=== PATIENT | male | born 1975 | race Caucasian/White ===

== ENCOUNTER → 2019-12-08 | Outpatient (CLI) | payer OTHER ==
[~2019-12-08] MED LIST: METOPROLOL SUCC50 M1 PO; VANCOMYCIN HCL125 MG PO
== END | disposition home or self-care (01) ==
LOC: LAB 14:16
PROVIDERS: Nurse Practitioner
DX: T45.1X5A Adverse effect of antineoplastic and immunosuppressive drugs, initial encounter (principal); Z51.11 Encounter for antineoplastic chemotherapy; A04.72 Enterocolitis due to Clostridium difficile, not specified as recurrent; C18.7 Malignant neoplasm of sigmoid colon; D53.9 Nutritional anemia, unspecified; X58.XXXA Exposure to other specified factors, initial encounter; Y93.89 Activity, other specified; Y92.89 Other specified places as the place of occurrence of the external cause; Y99.8 Other external cause status

== ENCOUNTER 2019-12-14 04:03 | Inpatient (IN) | payer OTHER ==
[2019-12-14] VITALS (9 sets, daily range): BP systolic 114–168; BP diastolic 80–96
[~2019-12-14] VITALS: Ht 167.6 cm; Wt 102.6 kg
[2019-12-14 04:48] LABS: BASO % 0.4 % (0.0-1.0); EOS # 0.2 10*3/uL (0.0-0.4); HEMATOCRIT 47.2 % (42.0-52.0); LYMPH # 1.1 10*3/uL (1.3-4.4); MEAN CELL VOLUME 87.2 fl (80.0-94.0); MEAN CORPUSCULAR HGB 29.4 pg (27.0-31.0); MEAN CORPUSCULAR HGB CONC 33.7 g/dl (33.0-37.0); MEAN PLATELET VOLUME 9.5 fl (9.6-12.3); MONO # 0.6 10*3/uL (0.1-1.0); MONO % 10.5 % (3.0-9.0); NEUT # 3.6 10*3/uL (2.3-7.9); NEUT % 65.1 % (47.0-73.0); PLATELET COUNT AUTOMATED 213 10*3/uL (130-400); RED BLOOD COUNT 5.41 10*6/uL (4.50-5.90); RED CELL DISTRI WIDTH 13.2 % (0-14.5); WHITE BLOOD COUNT 5.5 10*3/uL (4.8-10.8)
--- NOTE | 2019-12-14 04:50 | NUR ---
ACCESSED PT'S MEDIPORT IN RT CHEST USING 20G 1 INCH EMANUEL NEEDLE. STERILE TECHNIQUE MAINTAINED THROUGHOUT PROCEDURE. POSITIVE BLOOD RETURN, FLUSHES WITHOUT DIFFICULTY. STERILY DRESSED WITH TEGADERM, CLEAN CAP APPLIED TO END OF HUB.
[2019-12-14 04:57] LABS: LIPASE 112 U/L (73-393)
[2019-12-14 05:28] LABS: ALBUMIN 3.4 gm/dl (3.1-4.5); ALKALINE PHOSPHATASE 90 U/L (45-117); BUN 12 mg/dl (7-24); CHLORIDE 107 mmol/L (98-107); CREATININE 1.05 mg/dL (0.70-1.30); SGOT/AST 22 IU/L (3-35); SGPT/ALT 35 U/L (12-78); SODIUM 138 mmol/L (136-145); TOTAL PROTEIN 7.2 gm/dL (6.4-8.2)
--- NOTE | 2019-12-14 05:38 | NUR ---
PT MEDICATED FOR PAIN PER OCT. PLACED ON CONTINUOUS CARDIAC, PULSE OX AND BP MONITORING. AWAITING PT TO FINISH PO CONTRAST FOR CT. PT AWARE OF POC AND AGREEABLE, DENIES FURTHER NEEDS AT THIS TIME. CALL LIGHT REMAINS WITHIN REACH, BED LOW AND LOCKED. WILL CONTINUE TO MONITOR.
--- NOTE | 2019-12-14 07:29 | NUR ---
RESTING IN NO DISTRESS AT THIS TIME. STATES HIS PAIN IS BETTER. CALL LIGHT IN REACH.
--- NOTE | 2019-12-14 08:05 | NUR ---
CONTINUES TO REST COMFORTABLY. CALL LIGHT IN REACH.
--- NOTE | 2019-12-14 10:15 | NUR ---
A 44, admitted to , under the services of MONO May DO with a diagnosis of CDIFF, SMALL BOWEL OBSTRUCTION. Chief complaint is PAIN, NAUSEA. Patient arrived via stretcher from ER. Monitor applied. Initial assessment completed. Vital signs taken and recorded. MONO MAY DO notified of admission to the unit. Orders received. See assessment for past medical history, medications and allergies. Patient and/or family oriented to unit. [address] visitation policy reviewed. Clothing/patient valuable form completed. EMRE MILLARD
[2019-12-14] MEDS ORDERED: METOPROLOL SUCC50 M1 PO (10:28)
[2019-12-14] MEDS ORDERED: VANCOMYCIN HCL125 MG PO (10:30)
--- NOTE | 2019-12-14 10:46 | NUR ---
DR GUERRERO NOTIFIED OF UPDATED MED REC
--- NOTE | 2019-12-14 11:09 | NUR ---
PT REQUESTED AND WAS MEDICATED WITH NORCO FOR C/O ABDOMINAL PAIN. CALL LIGHT AND ISOLATION PRECAUTIONS MAINTAINED.
--- NOTE | 2019-12-14 11:45 | NUR ---
IVF INFUSING PER ORDERS.
--- NOTE | 2019-12-14 12:30 | NUR ---
NORCO NOT EFFECTIVE PER PT. DR TO BE NOTIFIED. WILL MONITOR
--- NOTE | 2019-12-14 13:46 | NUR ---
PT MEDICATED WITH DILAUDID FOR C/O ABDOMINAL PAIN. WILL MONITOR
--- NOTE | 2019-12-14 14:46 | NUR ---
MEDICATION EFFECTIVE PER PT.
--- NOTE | 2019-12-14 17:51 | NUR ---
PT REQUESTED AND WAS MEDICATED WITH DILAUDID AND ZOFRAN FOR C/O ABDOMINAL PAIN AND NAUSEA. CALL LIGHT IN REACH. WILL MONITOR
--- NOTE | 2019-12-14 21:43 | NUR ---
PATIENT MEDICATED WITH DILAUDID AND ZOFRAN PER PRN ORDER AND PATIENT REQUEST FOR C/O NAUSEA AND ABDOMINAL PAIN. SEE EMAR. REINFORCED USE OF CALL LIGHT.
[2019-12-15] VITALS: BP 139/78
--- NOTE | 2019-12-15 | NUR ---
PATIENT RESTING QUIETLY. NO FURTHER C/O VOICED.
--- NOTE | 2019-12-15 01:50 | NUR ---
PATIENT REQUESTED AND WAS MEDICATED WITH DILAUDID AND ZOFRAN PER PRN ORDER FOR C/O SL NAUSEA, ABDOMINAL PAIN. RATED PAIN A 4/10 WITH 10 BEING THE WORST. ALSO MEDICATED WITH TYLENOL FOR TEMP ELEVATION OF 99.5. SEE EMAR. REINFORCED USE OF CALL LIGHT
--- NOTE | 2019-12-15 04:00 | NUR ---
PATIENT RESTING QUIETLY. NO FURTHER C/O VOICED.
--- NOTE | 2019-12-15 06:00 | NUR ---
PATIENT MEDICATED SLOWLY WITH DILAUDID 1MG IV AND ZOFRAN 4 MG IV PER PRN ORDER FOR C/O ABDOMINAL PAIN / NAUSEA. RATED PAIN A 3/10 WITH 10 BEING THE WORST.SEE EMAR. REINFORCED USE OF CALL LIGHT
[2019-12-15 06:05] LABS: ALKALINE PHOSPHATASE 75 U/L (45-117); BUN 13 mg/dl (7-24); CHLORIDE 108 mmol/L (98-107); CHOLESTEROL 161 mg/dL (<200); CREATININE 1.12 mg/dL (0.70-1.30); HDL CHOLESTEROL 35 mg/dl (40-60); LDL CHOLESTEROL 92 mg/dL (9-159); PHOSPHOROUS 3.1 mg/dL (2.5-4.9); SGOT/AST 12 IU/L (3-35); SGPT/ALT 28 U/L (12-78); SODIUM 140 mmol/L (136-145); TOTAL PROTEIN 6.3 gm/dL (6.4-8.2); TRIGLYCERIDES 171 mg/dl (<150); VLDL CHOLESTEROL 34 mg/dL (6-40)
[2019-12-15 06:06] LABS: BASO % 0.6 % (0.0-1.0); EOS # 0.2 10*3/uL (0.0-0.4); HEMATOCRIT 43.1 % (42.0-52.0); LYMPH # 1.2 10*3/uL (1.3-4.4); LYMPH % 24.6 % (27.0-41.0); MEAN CELL VOLUME 89.2 fl (80.0-94.0); MEAN CORPUSCULAR HGB 28.8 pg (27.0-31.0); MEAN CORPUSCULAR HGB CONC 32.3 g/dl (33.0-37.0); MEAN PLATELET VOLUME 9.9 fl (9.6-12.3); MONO # 0.8 10*3/uL (0.1-1.0); MONO % 16.1 % (3.0-9.0); NEUT # 2.7 10*3/uL (2.3-7.9); NEUT % 54.5 % (47.0-73.0); PLATELET COUNT AUTOMATED 215 10*3/uL (130-400); RED BLOOD COUNT 4.83 10*6/uL (4.50-5.90); RED CELL DISTRI WIDTH 13.2 % (0-14.5)
[2019-12-15 08:00] VITALS: BP 124/64
--- NOTE | 2019-12-15 10:29 | NUR ---
PT REQUESTED AND WAS MEDICATED WITH DILAUDID IV FOR C/O ABDOMINLA PAIN AND ZOFRAN IV FOR C/O NAUSEA. CALL LIGHT IN REACH. ISOLATION PRECAUTIONS MAINTAINED. WILL MONITOR
--- NOTE | 2019-12-15 10:34 | NUR ---
Laser/Electro Optics Technician in to talk to patient. Patient states lives at HOME with . There are NO steps in the home. Physician: RADHA [facility]acy: [facility] Home health services: [facility] ONCE A WEEK Patient's level of ADLs: INDEPENDENT Patient has working utilities: YES DME: NONE Follow-up physician's appointment after d/c: WILL BE MADE BY HOSPITALIST NURSE DIRECTOR ON DISCHARGE Does patient want to access PORTAL?: NO Discharge plan . PT LIVES AT HOME WITH HIS AND IS INDEPENDENT IN HIS CARE. STATES HE IS CURRENTLY STILL GETTING CHEMO AND HAS [facility] WEEKLY. PT STATES HE IS NOT SURE ABOUT DISCHARGE PLAN AT THIS TIME. STATES THEY WERE TALKING ABOUT HIM GOING TO [facility]. WILL CONTINUE TO FOLLOW. STATES IF HE DOES GO HOME WILL TRANSPORT HIM. ELA HAMILTON
--- NOTE | 2019-12-15 11:30 | NUR ---
MEDICATIONS EFFECTIVE PER PT. CALL LIGHT IN REACH. WILL MONITOR
[2019-12-15 12:00] VITALS: BP 135/78
[2019-12-15 16:00] VITALS: BP 157/95
--- NOTE | 2019-12-15 16:00 | NUR ---
NORCO GIVEN FOR ABD PAIN RATED 8/10. CALL LIGHT IN REACH. ISOLATION MAINTAINED. WILL MONITOR FOR EFFECTIVENESS.
--- NOTE | 2019-12-15 16:43 | NUR ---
DILAUDID GIVEN FOR C/O ABD PAIN RATED 10/10. CALL LIGHT IN REACH. WILL MONITOR. NORCO WAS INEFFECTIVE.
--- NOTE | 2019-12-15 16:47 | NUR ---
C.O NAUSEA, ASKING FOR BUCKET. ZOFRAN INEFFECTIVE. INFORMED. SAID HE WOULD ORDER PHENERGAN.
--- NOTE | 2019-12-15 17:18 | NUR ---
PHENERGAN GIVEN FOR C/O NAUSEA DESPITE ZOFRAN. WILL MONITOR.
[2019-12-15 20:00] VITALS: BP 163/91
--- NOTE | 2019-12-15 20:15 | NUR ---
CALLED AND WAS UPDATED ON PATIENT. PAIN ASSESSMENT COMPLETED. DENIES NEED FOR PAIN MEDS AT PRESENT.
--- NOTE | 2019-12-15 22:00 | NUR ---
PATIENT MEDICATED WITH ZOFRAN AND DILAUDID PER PRN ORDER FOR C/O NAUSEA AND ABDOMINAL PAIN. RATED PAIN A 5-6/10 WITH 10 BEING THE WORST. SEE EMAR. REINFORCED USE OF CALL LIGHT.
[2019-12-16] VITALS: BP 157/93
--- NOTE | 2019-12-16 | NUR ---
PATIENT RESTING QUIETLY. NO S/S OF DISTRESS NOTED.
--- NOTE | 2019-12-16 02:43 | NUR ---
24 HR chart check completed.
[2019-12-16 05:46] LABS: BUN 12 mg/dl (7-24); CHLORIDE 108 mmol/L (98-107); POTASSIUM 4.4 mmol/L (3.5-5.1); SODIUM 137 mmol/L (136-145)
[2019-12-16 06:15] LABS: BASO % 0.7 % (0.0-1.0); EOS # 0.3 10*3/uL (0.0-0.4); EOS % 5.1 % (1.0-4.0); HEMATOCRIT 43.9 % (42.0-52.0); LYMPH # 1.2 10*3/uL (1.3-4.4); LYMPH % 21.7 % (27.0-41.0); MEAN CELL VOLUME 91.3 fl (80.0-94.0); MEAN CORPUSCULAR HGB 28.9 pg (27.0-31.0); MEAN CORPUSCULAR HGB CONC 31.7 g/dl (33.0-37.0); MEAN PLATELET VOLUME 10.2 fl (9.6-12.3); MONO # 1.1 10*3/uL (0.1-1.0); MONO % 19.4 % (3.0-9.0); NEUT % 52.7 % (47.0-73.0); PLATELET COUNT AUTOMATED 219 10*3/uL (130-400); RED BLOOD COUNT 4.81 10*6/uL (4.50-5.90); RED CELL DISTRI WIDTH 13.2 % (0-14.5); WHITE BLOOD COUNT 5.7 10*3/uL (4.8-10.8)
[2019-12-16 08:00] VITALS: BP 140/85
[2019-12-16 12:00] VITALS: BP 139/76
--- NOTE | 2019-12-16 14:44 | NUR ---
Discharge instructions reviewed with patient/family. Patient receptive and verbalizes understanding. Follow-up care arranged. Written instructions given to patient/family. MEDIPORT DEACCESSED. PATIENT AMBULATORY OFF FLOOR. KG GUZMAN
== END 2019-12-16 14:44 | disposition home or self-care (01) | DRG 389 ==
LOC: ED 04:03 → 4E 09:28 → EDHOLD 09:28 → 4E 09:40
PROVIDERS: Emergency Medicine; Family Medicine; Internal Medicine; ADMIT Family Medicine
DX: K56.600 Partial intestinal obstruction, unspecified as to cause (principal); A04.72 Enterocolitis due to Clostridium difficile, not specified as recurrent; R65.10 Systemic inflammatory response syndrome (SIRS) of non-infectious origin without acute organ dysfunction; C80.0 Disseminated malignant neoplasm, unspecified; E44.1 Mild protein-calorie malnutrition; I10 Essential (primary) hypertension; E78.5 Hyperlipidemia, unspecified; R73.9 Hyperglycemia, unspecified; E87.8 Other disorders of electrolyte and fluid balance, not elsewhere classified; E83.41 Hypermagnesemia; Z93.3 Colostomy status; Z83.49 Family history of other endocrine, nutritional and metabolic diseases; Z68.36 Body mass index [BMI] 36.0-36.9, adult

== ENCOUNTER 2020-01-01 18:29 | Emergency (ER) | payer OTHER ==
[~2020-01-01] VITALS: Ht 167.6 cm; Wt 90.7 kg
[~2020-01-01 18:29] MED LIST changes: -LISINOPRIL2.5 MG PO
[2020-01-01 19:23] LABS: BASO % 0.3 % (0.0-1.0); EOS # 0.2 10*3/uL (0.0-0.4); EOS % 3.1 % (1.0-4.0); LYMPH # 1.4 10*3/uL (1.3-4.4); LYMPH % 17.7 % (27.0-41.0); MEAN CELL VOLUME 86.5 fl (80.0-94.0); MEAN CORPUSCULAR HGB 28.9 pg (27.0-31.0); MEAN CORPUSCULAR HGB CONC 33.5 g/dl (33.0-37.0); MONO # 0.5 10*3/uL (0.1-1.0); NEUT # 5.7 10*3/uL (2.3-7.9); NEUT % 72.8 % (47.0-73.0); PLATELET COUNT AUTOMATED 211 10*3/uL (130-400); RED BLOOD COUNT 5.32 10*6/uL (4.50-5.90); RED CELL DISTRI WIDTH 13.1 % (0-14.5); WHITE BLOOD COUNT 7.8 10*3/uL (4.8-10.8)
[2020-01-01 19:40] LABS: ALBUMIN 3.3 gm/dl (3.1-4.5); ALKALINE PHOSPHATASE 84 U/L (45-117); BUN 10 mg/dl (7-24); CHLORIDE 105 mmol/L (98-107); LIPASE 180 U/L (73-393); POTASSIUM 3.4 mmol/L (3.5-5.1); SGOT/AST 19 IU/L (3-35); SGPT/ALT 61 U/L (12-78); SODIUM 137 mmol/L (136-145); TOTAL PROTEIN 7.1 gm/dL (6.4-8.2)
== END 2020-01-01 21:15 ==
LOC: ED 18:29
PROVIDERS: Physician Assistant
DX: R10.9 Unspecified abdominal pain (principal); I10 Essential (primary) hypertension; Z79.899 Other long term (current) drug therapy

== ENCOUNTER → 2020-01-01 | Outpatient (CLI) | payer OTHER ==
[~2020-01-01] MED LIST changes: +LISINOPRIL2.5 MG PO
== END | disposition home or self-care (01) ==
LOC: LAB 16:02
DX: Z51.11 Encounter for antineoplastic chemotherapy (principal); A04.72 Enterocolitis due to Clostridium difficile, not specified as recurrent; R11.2 Nausea with vomiting, unspecified; D53.9 Nutritional anemia, unspecified; C18.7 Malignant neoplasm of sigmoid colon

== ENCOUNTER 2020-01-04 10:42 | Inpatient (IN) | payer OTHER ==
[~2020-01-04] VITALS: Ht 167.6 cm; Wt 98.1 kg
[2020-01-04 10:46] VITALS: BP 152/101
[2020-01-04 11:15] LABS: BASO # 0.1 10*3/uL (0.0-0.1); BASO % 0.6 % (0.0-1.0); EOS # 0.3 10*3/uL (0.0-0.4); EOS % 3.1 % (1.0-4.0); HEMATOCRIT 48.3 % (42.0-52.0); LYMPH # 1.2 10*3/uL (1.3-4.4); LYMPH % 13.8 % (27.0-41.0); MEAN CELL VOLUME 86.9 fl (80.0-94.0); MEAN CORPUSCULAR HGB 28.8 pg (27.0-31.0); MEAN CORPUSCULAR HGB CONC 33.1 g/dl (33.0-37.0); MEAN PLATELET VOLUME 9.6 fl (9.6-12.3); MONO # 0.7 10*3/uL (0.1-1.0); MONO % 8.1 % (3.0-9.0); NEUT # 6.7 10*3/uL (2.3-7.9); NEUT % 74.2 % (47.0-73.0); PLATELET COUNT AUTOMATED 212 10*3/uL (130-400); RED BLOOD COUNT 5.56 10*6/uL (4.50-5.90); RED CELL DISTRI WIDTH 13.2 % (0-14.5)
[2020-01-04 11:29] LABS: ACT PARTIAL THROMBO TIME 26.2 SECONDS (20.0-32.1)
[2020-01-04 11:32] LABS: ALBUMIN 3.5 gm/dl (3.1-4.5); ALKALINE PHOSPHATASE 81 U/L (45-117); BUN 12 mg/dl (7-24); CHLORIDE 109 mmol/L (98-107); LIPASE 137 U/L (73-393); POTASSIUM 4.2 mmol/L (3.5-5.1); SGOT/AST 13 IU/L (3-35); SGPT/ALT 45 U/L (12-78); SODIUM 138 mmol/L (136-145); TOTAL PROTEIN 7.4 gm/dL (6.4-8.2)
[2020-01-04 11:46] LABS: BILIRUBIN NEGATIVE (NEGATIVE); BLOOD NEGATIVE (NEGATIVE); CLARITY CLEAR (CLEAR); COLOR YELLOW (YELLOW); GLUCOSE NEGATIVE (NEGATIVE); KETONE NEGATIVE (NEGATIVE); LEUKO ESTERASE NEGATIVE (NEGATIVE); MUCOUS TRACE; NITRITE NEGATIVE (NEGATIVE); RBC 0-2 rbc/hpf (0-2); UROBILINOGEN 0.2 E.U./dl (0.2-1.0); WBC 0-2 wbc/hpf (0-5)
[2020-01-04 13:30] VITALS: BP 137/89
--- NOTE | 2020-01-04 13:30 | NUR ---
A 44, admitted to 4E, under the services of MARCELLUS Alvarenga DO with a diagnosis of PARTIAL SMALL BOWEL OBSTRUCTION. Chief complaint is ABDOMINAL PAIN. Patient arrived via wheel chair from ER. Monitor applied. Initial assessment completed. Vital signs taken and recorded. MARCELLUS ALVARENGA DO notified of admission to the unit. Orders received. See assessment for past medical history, medications and allergies. Patient and/or family oriented to unit. [facility] visitation policy reviewed. Clothing/patient valuable form completed. IZZY MAGAÑA
[2020-01-04] MEDS ORDERED: LISINOPRIL2.5 MG PO (13:47)
--- NOTE | 2020-01-04 13:48 | NUR ---
PT GIVEN MORPHINE DUE TO ABDOMINAL PAIN, RATES PAIN A "10" ON 1-10 SCALE .WILL MONITOR FOR EFFECTIVENESS. PT RESTING IN BED. SAFETY MEASURES IN PLACE. CALL LIGHT IN REACH.
--- NOTE | 2020-01-04 14:48 | NUR ---
PT STATES THAT MORPHINE IS EFFECTIVE AT THIS TIME.
--- NOTE | 2020-01-04 14:58 | NUR ---
DR KEARNS NOTIFIED OF CONSULT ON PT.
[2020-01-04 16:00] VITALS: BP 134/85
--- NOTE | 2020-01-04 16:58 | NUR ---
PT C/O PAIN TO ABDOMEN. NORCO GIVEN PER PRN ORDERS ON EMAR. WILL MONITOR FOR EFFECTIVENESS. CALL LIGHT IN REACH.
--- NOTE | 2020-01-04 18:34 | NUR ---
PT GIVEN MORPHINE AT THIS TIME FOR C/O ABDOMINAL PAIN. WILL MONITOR FOR EFFECTIVENESS. CALL LIGHT IN REACH.
--- NOTE | 2020-01-04 19:00 | NUR ---
ASSUMED CARE FOR THIS PT AT THIS TIME. PT C/O DIFFUSE STABBING PAIN TO MID ABD, PT PREVIOUSLY MEDICATED W/MORHPINE IVP. PT DENIES NAUSEA. CALL LIGHT IN REACH. WILL MONITOR PAIN.
[2020-01-04 20:00] VITALS: BP 151/82
--- NOTE | 2020-01-04 22:47 | NUR ---
PT MEDICATED W/MORPHINE IVP FOR C/O ABD PAIN 12/30. WILL MONITOR FOR EFFECTIVENESS. CALL LIGHT IN REACH.
--- NOTE | 2020-01-04 23:42 | NUR ---
PT MEDICATED W/NORCO FOR C/O ABD PAIN 12/30 D/T MORPHINE NOT EFFECTIVE.
[2020-01-05] VITALS: BP 128/79
--- NOTE | 2020-01-05 | NUR ---
PT RESTING QUIETLY IN BED. NO FURTHER C/O PAIN VOICED.
--- NOTE | 2020-01-05 03:18 | NUR ---
PT MEDICATED W/MORPHINE IVP FOR C/O ABD PAIN 01/30. WILL MONITOR.
--- NOTE | 2020-01-05 04:18 | NUR ---
PT RESTING QUIETLY IN BED. NO S/S OF DISTRESS NOTED.
[2020-01-05 05:58] LABS: BASO % 0.5 % (0.0-1.0); EOS # 0.3 10*3/uL (0.0-0.4); EOS % 4.1 % (1.0-4.0); HEMATOCRIT 42.6 % (42.0-52.0); LYMPH # 1.2 10*3/uL (1.3-4.4); LYMPH % 18.8 % (27.0-41.0); MEAN CORPUSCULAR HGB 28.3 pg (27.0-31.0); MEAN CORPUSCULAR HGB CONC 32.2 g/dl (33.0-37.0); MEAN PLATELET VOLUME 10.1 fl (9.6-12.3); MONO # 0.6 10*3/uL (0.1-1.0); MONO % 9.7 % (3.0-9.0); NEUT # 4.3 10*3/uL (2.3-7.9); NEUT % 66.6 % (47.0-73.0); PLATELET COUNT AUTOMATED 179 10*3/uL (130-400); RED BLOOD COUNT 4.84 10*6/uL (4.50-5.90); RED CELL DISTRI WIDTH 13.2 % (0-14.5); WHITE BLOOD COUNT 6.4 10*3/uL (4.8-10.8)
[2020-01-05 06:08] LABS: BUN 13 mg/dl (7-24); CHLORIDE 106 mmol/L (98-107); CREATININE 0.81 mg/dL (0.70-1.30); POTASSIUM 3.8 mmol/L (3.5-5.1); SODIUM 138 mmol/L (136-145)
--- NOTE | 2020-01-05 06:19 | NUR ---
SCOTT DARLING [id number] Please refer to the physician's history and physical for past medical history, comorbid conditions, and allergies. Diagnosis: PARTIAL SMALL BOWEL OBSTRUCTION José Miguel Score: 23,LOW OR NO RISK WOUND DESCRIPTIONS: Wound Number: 1 Location of the wound: left upper quadrant Type of wound: surgical Thickness: Partial Size: 0.1cm x 1.7cm x <0.1cm Tunneling: none Undermining: none Sinus Tract: none Presence of Exudate: none Amount: None Color: Red Odor: None Periwound Skin Appearance: Normal Wound edges: approximated with glue Pain (associated with wound): none at time of assessment How does patient state this happened? pt stated he had surgery last week Wound Number: 2 Location of the wound: left lower quadrant Type of wound: surgical Thickness: Partial Size: 0.1cm x 0.9cm x <0.1cm Tunneling: none Undermining: none Sinus Tract: none Presence of Exudate: none Amount: None Color: Red Odor: None Periwound Skin Appearance: Normal Wound edges: approximated with glue Pain (associated with wound): none at time of assessment How does patient state this happened? pt stated he had surgery last week Wound Number: 3 Location of the wound: umbilicus Type of wound: surgical Thickness: Partial Size: 0.1cm x 0.9cm x <0.1cm Tunneling: none Undermining: none Sinus Tract: none Presence of Exudate: none Amount: None Color: Red Odor: None Periwound Skin Appearance: Normal Wound edges: approximated with glue Pain (associated with wound): none at time of assessment How does patient state this happened? pt stated he had surgery last week Wound Number: 4 Location of the wound: right lower quadrant Type of wound: surgical Thickness: Partial Size: 0.1cm x 1.1cm x <0.1cm Tunneling: none Undermining: none Sinus Tract: none Presence of Exudate: none Amount: None Color: Red Odor: None Periwound Skin Appearance: Normal Wound edges: approximated with glue Pain (associated with wound): none at time of assessment How does patient state this happened? pt stated he had surgery last week Surface the patient is resting on: Isoflex SKIN PREVENTION RECOMMENDATION: 1. Pressure redistribution support surface as appropriate 2. Elevate heels 3. Remove boots/TEDS every shift and reapply 4. Head of bed 30 degrees as tolerated 5. Assess nutrition and hydration 6. Manage moisture 7. Avoid the use of containment devices while in bed 8. Use absorptive products on surfaces limit layers of linens on bed 9. Turn and reposition every 1-2 hours in bed and every 1 hour in chair as tolerated 10. Weight shifts every 15 minutes while up in chair 11. Offloading with pillows or device to keep heels elevated off bed 12. Monitor skin at least every shift 13. Inspect under medical devices twice a day WOUND TREATMENT RECOMMENDATIONS: Keep areas clean and dry and leave open to air since incisions are glued.
--- NOTE | 2020-01-05 07:32 | NUR ---
Dr. Arana notified of wound care recommendations.
--- NOTE | 2020-01-05 07:37 | NUR ---
MORPHINE 2 MG GIVEN AT THIS TIME FOR C/O INCREASED ABDOMINAL PAIN. WILL MONITOR FOR EFFECTIVENESS. SAFETY MEASURES IN PLACE. CALL LIGHT IN REACH.
[2020-01-05 08:00] VITALS: BP 138/92
--- NOTE | 2020-01-05 08:37 | NUR ---
MORPHINE EFFECTIVE PER PT.
[2020-01-05 12:00] VITALS: BP 130/86
--- NOTE | 2020-01-05 12:39 | NUR ---
PT GIVEN ZOFRAN VIA IV AT THIS TIME FOR C/O NAUSEA. WILL MONITOR FOR EFFECTIVENESS. CALL LIGHT IN REACH.
--- NOTE | 2020-01-05 13:39 | NUR ---
ZOFRAN EFFECTIVE PER PT
--- NOTE | 2020-01-05 14:38 | NUR ---
Nutritional Support Services Note: Appetite is goof for meals. He is eating 100% of all meals. He receives a soft diet as ordered. Healing surgical incision from exp lap. No nutriton intervention needed at this time. Continue to encourage good intake of meals. Will follow. Charu Marie Rdn Ld
--- NOTE | 2020-01-05 14:42 | NUR ---
IV FLUID RATE CHANGED FROM 80 TO 100CC/HOUR PER VERBAL ORDER RECEIVED BY DR RAY.
[2020-01-05 16:00] VITALS: BP 121/74
--- NOTE | 2020-01-05 17:06 | NUR ---
MORPHINE 2 MG GIVEN TO PT AT THIS TIME FOR C/O ABDOMINAL PAIN. WILL MONITOR FOR EFFECTIVENESS. CALL LIGHT IN REACH.
--- NOTE | 2020-01-05 18:06 | NUR ---
MORPHINE EFFECTIVE PER PT.
--- NOTE | 2020-01-05 19:00 | NUR ---
ASSUMED CARE FOR THIS PT AT THIS TIME. PT RESTNG QUIETLY IN BED. CALL LIGHT IN REACH.
[2020-01-05 20:00] VITALS: BP 160/72
--- NOTE | 2020-01-05 21:54 | NUR ---
PT MEDICATED W/ZOFRAN FOR C/O NAUSEA. PT RESTING QUIETLY IN BED W/LIGHTS OFF AND DOOR CLOSED. CALL LIGHT IN REACH.
--- NOTE | 2020-01-05 22:30 | NUR ---
PT STATES THAT ZOFRAN WAS EFFECTIVE FOR RELIEF OF NAUSEA.
[2020-01-06] VITALS: BP 156/83
--- NOTE | 2020-01-06 00:32 | NUR ---
PT MEDICATED W/IVP MORPHINE FOR C/O ABD CRAMPING 11/30.
[2020-01-06 06:32] LABS: BASO % 0.3 % (0.0-1.0); EOS # 0.3 10*3/uL (0.0-0.4); HEMATOCRIT 40.5 % (42.0-52.0); LYMPH # 1.2 10*3/uL (1.3-4.4); LYMPH % 17.1 % (27.0-41.0); MEAN CELL VOLUME 87.1 fl (80.0-94.0); MEAN CORPUSCULAR HGB 28.8 pg (27.0-31.0); MEAN CORPUSCULAR HGB CONC 33.1 g/dl (33.0-37.0); MEAN PLATELET VOLUME 9.7 fl (9.6-12.3); MONO # 0.8 10*3/uL (0.1-1.0); MONO % 11.7 % (3.0-9.0); NEUT # 4.5 10*3/uL (2.3-7.9); NEUT % 65.6 % (47.0-73.0); PLATELET COUNT AUTOMATED 182 10*3/uL (130-400); RED BLOOD COUNT 4.65 10*6/uL (4.50-5.90); RED CELL DISTRI WIDTH 13.2 % (0-14.5); WHITE BLOOD COUNT 6.8 10*3/uL (4.8-10.8)
[2020-01-06 07:12] LABS: ALKALINE PHOSPHATASE 73 U/L (45-117); BUN 10 mg/dl (7-24); CHLORIDE 105 mmol/L (98-107); CREATININE 0.86 mg/dL (0.70-1.30); SGOT/AST 11 IU/L (3-35); SGPT/ALT 29 U/L (12-78); SODIUM 139 mmol/L (136-145)
[2020-01-06 07:13] LABS: TOTAL PROTEIN 6.1 gm/dL (6.4-8.2)
--- NOTE | 2020-01-06 07:30 | NUR ---
Hep Lock discontinued to right antecubital due to site becoming dislodged. Will place another site for pt to receive IV fluids. Site asymptomatic. Pressure applied. Sterile dressing applied. IZZY MAGAÑA
--- NOTE | 2020-01-06 07:45 | NUR ---
IV started left hand with #22 protective cath after 1 attempts. Site prepped with Chloroprep. Sterile dressing applied. Patient tolerated procedure well. IV infusing at 100 cc/hr. IZZY MAGAÑA
[2020-01-06 08:00] VITALS: BP 136/77
--- NOTE | 2020-01-06 08:00 | NUR ---
PT GIVEN MORPHINE 2 MG AT THIS TIME PER PT REQUEST FOR C/O ABDOMINAL PAIN. WILL MONITOR FOR EFFECTIVENESS. CALL LIGHT IN REACH.
--- NOTE | 2020-01-06 09:00 | NUR ---
MORPHINE EFFECTIVE PER PT.
[2020-01-06 12:00] VITALS: BP 126/58
--- NOTE | 2020-01-06 12:06 | NUR ---
PT GIVEN MORPHINE 2 MG VIA IV PUSH FOR C/O ABDOMINAL PAIN. PATIENT RATES PAIN A "6". WILL MONITOR FOR EFFECTIVENESS. CALL LIGHT IN REACH.
--- NOTE | 2020-01-06 12:45 | NUR ---
SPOKE WITH ADOLFO FROM [facility] AND GAVE INFORMATION ON PATIENT PER HER REQUEST. ADOLFO STATES THAT PT HAS BEEN ACCEPTED TO [place] BUT NO BED IS AVAILABLE AT THIS TIME.
--- NOTE | 2020-01-06 12:48 | NUR ---
Spoke to Tha at [facility] Med Call regarding prior authorization for transfer to a [facility] facility. She states patient does NOT need an auth to be transferred to a [facility] facility as patient has [facility] insurance. Nurse and nursing supervisor machining notified.
--- NOTE | 2020-01-06 13:06 | NUR ---
MORPHINE EFFECTIVE PER PT.
--- NOTE | 2020-01-06 14:29 | NUR ---
REPORT CALLED TO HERBERT BEVERLY AT [facility].
--- NOTE | 2020-01-06 14:30 | NUR ---
PT LEAVING FACILITY AT THIS TIME FOR TRANSFER TO [facility]. [facility] TRANSPORTING PATIENT.
== END 2020-01-06 14:30 | disposition short-term general hospital (02) | DRG 389 ==
LOC: ED 10:42 → 4E 13:02 → EDHOLD 13:02 → 4E 13:30
PROVIDERS: Family Medicine; ADMIT Emergency Medicine
DX: K56.600 Partial intestinal obstruction, unspecified as to cause (principal); C80.0 Disseminated malignant neoplasm, unspecified; I10 Essential (primary) hypertension; E78.5 Hyperlipidemia, unspecified; E83.41 Hypermagnesemia; E87.8 Other disorders of electrolyte and fluid balance, not elsewhere classified; R73.9 Hyperglycemia, unspecified; Z92.21 Personal history of antineoplastic chemotherapy; Z93.3 Colostomy status; Z79.899 Other long term (current) drug therapy

== ENCOUNTER 2020-01-21 04:44 | Emergency (ER) | payer OTHER ==
[~2020-01-21] VITALS: Ht 167.6 cm; Wt 90.7 kg
[~2020-01-21 04:44] MED LIST changes: +LISINOPRIL2.5 MG PO
[2020-01-21 05:44] LABS: HEMATOCRIT 41.4 % (42.0-52.0); MEAN CORPUSCULAR HGB 27.9 pg (27.0-31.0); MEAN CORPUSCULAR HGB CONC 32.1 g/dl (33.0-37.0); MEAN PLATELET VOLUME 10.5 fl (9.6-12.3); PLATELET COUNT AUTOMATED 249 10*3/uL (130-400); RED BLOOD COUNT 4.76 10*6/uL (4.50-5.90); RED CELL DISTRI WIDTH 13.5 % (0-14.5); WHITE BLOOD COUNT 10.8 10*3/uL (4.8-10.8)
[2020-01-21 05:54] LABS: ALBUMIN 2.5 gm/dl (3.1-4.5); ALKALINE PHOSPHATASE 118 U/L (45-117); BUN 17 mg/dl (7-24); CHLORIDE 105 mmol/L (98-107); CREATININE 0.66 mg/dL (0.70-1.30); LIPASE 551 U/L (73-393); POTASSIUM 4.1 mmol/L (3.5-5.1); SGOT/AST 12 IU/L (3-35); SGPT/ALT 25 U/L (12-78); SODIUM 135 mmol/L (136-145); TOTAL PROTEIN 7.1 gm/dL (6.4-8.2)
[2020-01-21 06:16] LABS: ACT PARTIAL THROMBO TIME 27.4 SECONDS (20.0-32.1)
[2020-01-21 06:18] LABS: PLATELET SUFFICIENCY NORMAL (NORMAL); TOTAL CELLS COUNTED 100 #CELLS
== END 2020-01-21 09:00 | disposition short-term general hospital (02) ==
LOC: ED 04:44
PROVIDERS: Emergency Medicine
DX: C78.5 Secondary malignant neoplasm of large intestine and rectum (principal); Z79.899 Other long term (current) drug therapy

== ENCOUNTER 2020-01-29 13:00 | Emergency (ER) | payer OTHER ==
[2020-01-29 13:41] LABS: BASO % 0.3 % (0.0-1.0); EOS # 0.1 10*3/uL (0.0-0.4); HEMATOCRIT 40.5 % (42.0-52.0); LYMPH # 0.9 10*3/uL (1.3-4.4); LYMPH % 11.4 % (27.0-41.0); MEAN CELL VOLUME 87.3 fl (80.0-94.0); MEAN CORPUSCULAR HGB 27.4 pg (27.0-31.0); MEAN CORPUSCULAR HGB CONC 31.4 g/dl (33.0-37.0); MEAN PLATELET VOLUME 9.9 fl (9.6-12.3); MONO # 0.5 10*3/uL (0.1-1.0); MONO % 6.2 % (3.0-9.0); NEUT # 6.4 10*3/uL (2.3-7.9); NEUT % 80.7 % (47.0-73.0); PLATELET COUNT AUTOMATED 227 10*3/uL (130-400); RED BLOOD COUNT 4.64 10*6/uL (4.50-5.90); RED CELL DISTRI WIDTH 13.7 % (0-14.5)
[2020-01-29 13:52] LABS: ACT PARTIAL THROMBO TIME 24.9 SECONDS (20.0-32.1)
[2020-01-29 13:57] LABS: ALBUMIN 2.7 gm/dl (3.1-4.5); ALKALINE PHOSPHATASE 144 U/L (45-117); BUN 24 mg/dl (7-24); CHLORIDE 106 mmol/L (98-107); LIPASE 443 U/L (73-393); SGOT/AST 21 IU/L (3-35); SGPT/ALT 46 U/L (12-78); SODIUM 138 mmol/L (136-145); TOTAL PROTEIN 7.3 gm/dL (6.4-8.2)
[2020-01-29 13:58] LABS: TROPONIN I < 0.015 ng/ml (<0.045)
== END 2020-01-29 23:30 | disposition short-term general hospital (02) ==
LOC: ED 13:00
PROVIDERS: Emergency Medicine
DX: K56.609 Unspecified intestinal obstruction, unspecified as to partial versus complete obstruction (principal); K65.9 Peritonitis, unspecified; C78.5 Secondary malignant neoplasm of large intestine and rectum; Z79.899 Other long term (current) drug therapy